=== PATIENT | female | born 1945 | race African-American/Black ===

== ENCOUNTER → 2017-02-12 | Outpatient (CLI) | payer OTHER ==
[~2017-02-12] MED LIST: AMBIEN 10 MG TA10 MG PO; CALCITRATE200 MG PO; MAGNESIUM400 MG PO; MELATONIN3 MG PO; NORCO 5-325 TA1 EACH PO; SYNTHROID75 MCG PO; TOPROL XL50 MG PO; VITAMIN D 5050000 I1 PO
== END ==
LOC: RAD 01:38
DX: Z12.31 Encounter for screening mammogram for malignant neoplasm of breast (principal)

== ENCOUNTER → 2017-03-08 | Outpatient (CLI) | payer OTHER | LOC: RAD 02-21 01:14 | DX: N63 Unspecified lump in breast (principal); R92.0 Mammographic microcalcification found on diagnostic imaging of breast ==

== ENCOUNTER → 2017-03-23 | Outpatient (CLI) | payer OTHER ==
--- NOTE | ~2017-03-23 | S ---
[facility] [place] [address] SURGICAL PATH RPT PROCEDURE Name: LORNA OLSON Room #: REG [facility].#: [id number] Admission: 03/23/17 Date of : 47 Discharge: Report #: [id number] Path Case #: [id number] PATHOLOGY REPORT COLLECTION DATE: 03/23/2017 RECEIVED DATE: 03/23/2017 SUBMITTING PHYS: Dr. Edin Leslie OTHER PHYS: Dr. Mj Hightower SPECIMEN(S) RECEIVED: A.Right lateral breast B.Left lateral breast-posterior * * * * * * * * * * * * FINAL DIAGNOSIS: A. Breast, right lateral breast, stereotactic needle core biopsy: - Coarse calcifications identified in association with hyalinized tissue in a background of focal adenosis as well as dilated ducts. - Negative for hyperplasia, atypia or malignancy. B. Breast, left lateral breast posterior, stereotactic needle core biopsy: - Coarse calcifications identified in association with hyalinized stroma, apocrine metaplasia, as well as focal adenosis. - Negative for hyperplasia, atypia or malignancy. 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 Co-review: Dr. Lesley Qiu. (IUV:keerthi; 03/26/2017) PATHOLOGIST: Juana Lyons M.D. REPORT ELECTRONICALLY SIGNED BY: Juana Lyons M.D. DATE/TIME: 03/27/2017 10:16 * * * * * * * * * * * * GROSS PATHOLOGY: A. Received in formalin labeled "Lorna Olson, right," and additionally labeled on the requisition as "lateral," are multiple needle cores of yellow-gonzalez fibrofatty tissue measuring 3.2 x 2.6 x 0.7 cm in aggregate dimensions. The tissue is submitted in its entirety in cassette A1 through A3. The cold ischemic time is 3 minutes. The total formalin fixation time is 13 hours 59 minutes. B. Received in formalin labeled "Anjel left," and additionally labeled on the requisition as "lateral posterior," are multiple [facility] [address] [place] [address] SURGICAL PATH RPT PROCEDURE Name: RHONDA OLSONCECIL Cummings [id number] Admission: 03/23/17 Date of : 47 Discharge: Report #: [id number] Path Case #: [id number] needle cores of yellow-gonzalez fibrofatty tissue measuring 3.7 x 8.6 x 0.5 cm in aggregate dimensions. The tissue is submitted in its entirety in cassette B1 through B5. The cold ischemic time is 5 minutes. The total formalin fixation time is 13 hours and 40 minutes. (TSD; 03/23/2017) CLINICAL HISTORY: Bilateral calcifications INITIAL CPT CODE(S): A; 60106 B; 34160 Professional services performed by [facility] at [facility] [address] [address], [place] [address] Technical services performed by [facility] at [address] [place] [address], [address], [place] [address]. [facility] [address] [place] [address] PHONE: [phone] DIRECTOR: Gaston Bermeo M.D. * * * END OF REPORT * * *
== END | disposition home or self-care (01) ==
LOC: RAD 08:11
DX: N60.81 Other benign mammary dysplasias of right breast (principal); N60.82 Other benign mammary dysplasias of left breast; Z79.899 Other long term (current) drug therapy

== ENCOUNTER → 2017-09-17 | Outpatient (CLI) | payer OTHER ==
[~2017-09-17] VITALS: Ht 154.9 cm; Wt 110.7 kg
[~2017-09-17] MED LIST changes: +ACETAMINOPHEN325 M1 PO; +ALBUTEROL2.5 MG/31 INH; +ALLEGRA ALLERG180 MG PO; +ASPIR 8181 MG PO; +ASPIR-TRIN325 MG PO; +ASPIRIN EC325 M1 PO; +ATORVASTATIN CA40 MG PO; +COZAAR 50 MG TA50 MG PO; +DEMADEX20 MG PO; +FUROSEMIDE20 MG/2 ML IV PUSH; +GLUCOPHAGE500 MG PO; +HYDROCODON-ACE1 EAC7 PO; +IRON325 PO; +KLOR-CON 1010 MEQ PO; +LASIX 20 MG TAB20 MG PO; +LASIX 40 MG TAB40 M2 PO; +LIPITOR40 MG PO; +LOPRESSOR25 PO; +LOSARTAN POTAS100 MG PO; +LOSARTAN POTASS25 MG PO; +METFORMIN HCL500 MG PO; +METOPROLOL SUCC50 MG PO; +MIRALAX17 GM PO; +NORVASC10 MG PO; +NOVOLIN N100 UNIT/1 SUBQ; +NOVOLOG MI100 UNIT/2 SUBQ; +NOVOLOG100 UNIT/1 SUBQ; +OMEPRAZOLE 20 M20 M1 PO; +OMEPRAZOLE40 MG PO; +PACERONE 200 M200 M1 PO; +PACERONE 200 M200 MG PO; +PIOGLITAZONE-M1 EAC1 PO; +PIOGLITAZONE15 MG; +POTASSIUM20 PO; +SENNA-TIME S T1 EACH PO; +SYNTHROID50 MCG PO; +TOPROL XL100 MG PO; +TRESIBA FL100 UNIT/1 SUBQ; +WELLBUTRIN XL150 MG PO; +ZOCOR20 MG PO
--- NOTE | ~2017-09-17 | CATHLAB ---
[facility] [place] [address] INVASIVE PROCEDURE REPORT Name: LORNA OLSON Room #: REG [facility]#: [id number] Admission: 09/17/17 Attend Phys: Agustin Sosa MD Discharge: Date of : 47 Date of Service: 09/17/17 1438 Report #: [id number] THIS REPORT FOR: //name// APPROVED REPORT Patient Details Patient Status: Out-Patient Room #: The patient is a 71 year-old female Event Personnel Agustin Sosa Webbing Supervisor, Jeanette Spence RN RN, Sri Wooten Sandifer, David Monitor, [facility] RN electrical logging engineer Performed Art Access - R radial artery Left Heart Cath w/or w/o Coronaries [id number] [facility] [address] Initial Mod Sed Same Phys/QHP Gr5y 056033 Hemostasis with Hemoband Indication Dyspnea, Positive stress test Risk Factors Hypercholesterolemia, Coronary Artery DiseaseHypertension, Diabetes Procedure Narrative The patient was brought electively to the Cardiac Catheterization Laboratory and was prepped and draped in a sterile manner. The Right Wrist^ was infiltrated with 1% Lidocaine subcutaneous anesthesia. A TRANSRADIAL SLENDER 6F GLIDESHEATH KIT #[id number] sheath was inserted into the Right Radial Artery^. Coronary angiography was performed using coronary diagnostic catheters. The right coronary system was accessed and visualized with a JR 4 catheter. The left coronary system was accessed and visualized with a JL 3.5 catheter. The left ventricle was accessed and visualized with a Pigtail catheter. Left ventricular/Aortic Valve gradient assessed via catheter pullback. Left ventriculogram was performed in HUNT projection. Closure device was deployed with a Fr VASC BAND L 27CM #[id number]. The patient tolerated the procedure well and there were no complications associated with the procedure. There was no hematoma. Intraoperative Conscious Sedation Sedation start time: 10:51 Case end Time: 11:10 Fentanyl 25 mcg Versed 1 mg [facility] [address] [place] [address] INVASIVE PROCEDURE REPORT Name: WHITNEYLORNA P Room #: REG [facility]#: [id number] Admission: 09/17/17 Attend Phys: Agustin Sosa MD Discharge: Date of : 47 Date of Service: 09/17/17 1438 Report #: [id number] Fluoro Time: 5.52 minutes Dose: 1064 mGy Contrast Type and Amount: Omnipaque 150 ml Coronary Angiography The patient's coronary anatomy is co- dominant. Diagnostic Cath Left Main large-caliber vessel, with mild to moderate calcification. In the distal segment, there is a 60-70% discrete napkin-ring type stenosis. LAD Moderate diffuse disease in the proximal segment with calcifications. The mid-segment does not have any flow-limiting lesions. The distal LAD tapers to a small size caliber vessel with a severe stenosis at the apical segment. Diagonal 1 Small-caliber vessel, no flow limiting lesions. Circumflex Codominant vessel, supplies 2 obtuse marginal arteries. OM1 Moderate size caliber vessel, supplies several branches as it travels down the lateral wall. There are no flow-limiting lesions in this vessel. OM2 Small-caliber vessel, with mild disease. Right Coronary Has mild disease in the mid segment. R PDA Patent vessel, with no flow-limiting lesions. Left Ventriculography The left ventricle is mildly dilated in size with normal contractility. The left ventricular ejection fraction is estimated to be 55-60%. Hemodynamics The aortic pressure is 160/73 mmHg with a mean of 110 mmHg. The left ventricular pressure is 220/2 mmHg with a mean of mmHg. The left ventricular end diastolic pressure is 21 mmHg. Conclusion 1. Severe stenosis in the distal left main artery. 2. Moderate disease in the proximal LAD, severe disease in the apical segment. 3. Codominant left circumflex system. [facility] [address] [place] [address] INVASIVE PROCEDURE REPORT Name: LORNA OLSON [id number] Admission: 09/17/17 Attend Phys: Agustin Sosa MD Discharge: Date of : 47 Date of Service: 09/17/17 1438 Report #: [id number] 4. Normal LV systolic function. 5. Recommend a surgical evaluation. <ELECTRONICALLY SIGNED> By: Agustin Sosa MD 09/17/17 1438 1438 1438 Agustin Sosa MD /INF
--- NOTE | ~2017-09-17 | EKG ---
[place] [address] [address] [place] [address] ELECTROCARDIOGRAM REPORT Name: LORNA OLSON Room #: REG [facility]#: [id number] Admission: 09/17/17 Attend Phys: Agustin Sosa MD Discharge: Date of : 47 Report #: [id number] THIS REPORT FOR: //name// [facility] Test Date: 2017-09-17 Test Time: 08:33:59 Pat Name: LORNA OLSON Department: Room: Gender: F Kitchen Help Handyman: Taco BAH : 1945 Requested By: Agustin Sosa Order Number: [id number] MD: Robin Otero Measurements Intervals Union Rate: 68 P: 45 AK: 152 QRS: 9 QRSD: 86 T: 33 QT: 407 QTc: 433 Interpretive Statements Sinus rhythm Poor R wave progression Compared to ECG 12/07/2000 16:09:28 Ventricular premature complex(es) no longer present Electronically Signed On 09-17-2017 8:49:53 GROUND CREW SUPERVISOR by Robin Otero [email or web address] <ELECTRONICALLY SIGNED> By: Robin Otero MD, [facility] 09/17/17 0849 0833 2 Robin Otero MD, FACC /EPI
[2017-09-17 09:17] VITALS: BP 154/76
[2017-09-17 09:19] LABS: HEMATOCRIT 37.5 % (37.0-47.0); HEMOGLOBIN 12.3 gm/dL (12.0-15.0); MCH 29.3 pg (26.0-34.0); MCHC 32.9 g/dL (28.0-37.0); MCV 89.3 fL (80.0-100.0); RBC 4.19 mil/uL (4.20-5.00); RDW 15.7 % (10.5-14.5); WBC 4.3 thou/uL (4.0-11.0)
[2017-09-17 09:33] LABS: CREATININE 1.1 mg/dL (0.6-1.0); POTASSIUM 3.5 mmol/L (3.5-5.1)
== END ==
LOC: CATH 08:10
PROVIDERS: Internal Medicine Cardiovascular Disease
DX: I25.10 Atherosclerotic heart disease of native coronary artery without angina pectoris (principal); E78.00 Pure hypercholesterolemia, unspecified; I10 Essential (primary) hypertension; E11.9 Type 2 diabetes mellitus without complications; I42.9 Cardiomyopathy, unspecified; Z82.49 Family history of ischemic heart disease and other diseases of the circulatory system; E78.5 Hyperlipidemia, unspecified; E66.9 Obesity, unspecified; Z87.891 Personal history of nicotine dependence

== ENCOUNTER → 2017-09-24 | Outpatient (CLI) | payer OTHER | LOC: ULTRA 09:07 | DX: Z01.818 Encounter for other preprocedural examination (principal) ==

== ENCOUNTER 2017-09-28 10:51 | Inpatient (IN) | payer OTHER ==
[2017-09-24 11:30] LABS: HEMATOCRIT 35.7 % (37.0-47.0); HEMOGLOBIN 11.8 gm/dL (12.0-15.0); MCH 29.7 pg (26.0-34.0); MCHC 33.1 g/dL (28.0-37.0); MCV 89.7 fL (80.0-100.0); PLATELET COUNT 262 thou/uL (150-400); RBC 3.98 mil/uL (4.20-5.00); WBC 3.7 thou/uL (4.0-11.0)
[2017-09-24 11:43] LABS: APTT 26.4 Seconds (24.5-32.8); PROTIME 9.7 Seconds (9.3-11.4)
[2017-09-24 11:44] LABS: ALBUMIN 3.6 g/dL (3.4-5.0); CALCIUM 9.3 mg/dL (8.5-10.1); CREATININE 1.1 mg/dL (0.6-1.0); POTASSIUM 3.9 mmol/L (3.5-5.1); TOTAL BILIRUBIN 0.5 mg/dL (<0.1-1.0); TOTAL PROTEIN 7.2 g/dL (6.4-8.2)
[2017-09-24 11:49] LABS: ABSOLUTE NEUTROPHILS 2.2 thou/uL (1.4-8.2)
[2017-09-24 11:55] LABS: URINE BILIRUBIN NEGATIVE (Negative); URINE BLOOD 1+ (Negative); URINE CLARITY CLEAR; URINE COLOR YELLOW; URINE GLUCOSE-RANDOM* 2+ (Negative); URINE KETONES NEGATIVE (Negative); URINE LEUKOCYTES-REFLEX TRACE (Negative); URINE NITRITE-REFLEX NEGATIVE (Negative); URINE PROTEIN (DIPSTICK) 1+ (Negative); URINE UROBILINOGEN 0.2 E.U./dl (0.2-1.0)
[2017-09-24 11:59] LABS: SQUAMOUS 0-3 Few /LPF (0-3); URINE WBC-REFLEX 0-5 Rare /HPF (0-5)
[2017-09-24 12:00] LABS: BACTERIA-REFLEX 1-9 Few /HPF (None Seen); CASTS None Seen /LPF (None Seen); CRYSTALS None Seen /LPF (None Seen); URINE RBC 0-2 Rare /HPF (0-2)
[2017-09-25 03:11] LABS: GLYCOHEMOGLOBIN (HGB A1C) 6.7 % (4.8-5.6)
[~2017-09-28] VITALS: Ht 157.5 cm; Wt 114.4 kg
--- NOTE | ~2017-09-28 | O ---
[facility] [place] [address] OPERATIVE REPORT Name: LORNA OLSON Emiliano Room #: 219-P [facility] IN ..#: [id number] Admission: 10/01/17 Attend Phys: Lamin Hooker MD Discharge: 10/08/17 Date of : 47 Report #: [id number] THIS REPORT FOR: //name// CC: Agustin Hightower DATE OF SERVICE: 10/01/2017 PREOPERATIVE DIAGNOSES: Coronary artery disease, left main disease, exertional dyspnea, abnormal stress test. POSTOPERATIVE DIAGNOSES: Coronary artery disease, left main disease, exertional dyspnea, abnormal stress test. OPERATIVE PROCEDURE PERFORMED: Coronary artery bypass grafting x 2 with left internal mammary artery to the LAD, saphenous vein graft to obtuse marginal vessel. SURGEON: Lamin Hooker MD CASTING OPERATOR HELPER: AIDEE Morris and AIDEE Briones ANESTHESIA: General. INDICATIONS: The patient is a very nice 71-year-old -[place] female who has presented with symptoms of significant dyspnea on exertion. She underwent a nuclear stress test which was abnormal to the anterior wall territory. She underwent subsequent left heart catheterization, which demonstrated important distal left main coronary artery disease. She had normal LV systolic function. She is admitted and brought to the operating room now for coronary bypass grafting. OPERATIVE SUMMARY: The patient was brought to the operating room and placed on the OR table in supine position. After anesthesia was induced via the general endotracheal route and monitoring lines have been positioned, the patient was prepped and draped in sterile fashion with chlorhexidine. It should be noted that we were unable to successfully place the [place]-Ray catheter. Ventricular tachycardia developed when trying to float the catheter. I first performed a median sternotomy incision. Left internal mammary artery was harvested in standard fashion. Concomitantly, saphenous vein was harvested from left lower extremity using multiple skip incisions. We did have significant difficulty identifying the saphenous vein graft at the level of the knee and the ankle and therefore went up to the thigh. After the internal mammary artery was harvested, I opened the pericardium, systemically [facility] [address] [place] [address] OPERATIVE REPORT Name: LORNA OLSON Room #: 219-P [facility] IN ..#: [id number] Admission: 10/01/17 Attend Phys: Lamin Hooker MD Discharge: 10/08/17 Date of : 47 Report #: [id number] anticoagulated the patient with heparin. Cannulae were placed in the ascending aorta and the right atrium. An antegrade cardioplegic cannula was positioned and after cardiopulmonary bypass had begun, under low flow conditions, the aorta was cross clamped and the heart was arrested. Approximately 1250 mL cold antegrade cardioplegia was augmented with topical ice slush. Diastolic arrest was achieved and maintained throughout this operation with intermittent doses of cold antegrade cardioplegia as well as cardioplegia given down grafts and topical ice slush. First opened up the obtuse marginal vessel, a large vessel, 1.9 mm in size. Distal anastomosis was carried out in end-to-side fashion with 7-0 Prolene. We gave cardioplegia and then opened up the LAD in the proximal aspect of its mid segment. This too was a good sized vessel, at least 1.9 mm in size. Distal anastomosis was carried out in end-to-side fashion with 7-0 Prolene utilizing the internal mammary artery. This was done with 7-0 Prolene. The pedicle was tacked to the epicardium with 6-0 Prolene. I then gave warm cardioplegia antegrade, took care to deair the ascending aorta and under low flow conditions, the aorta crossclamp was released after warm cardioplegia was given. We placed a side-biting clamp. The aortic root vent was removed. We constructed proximal anastomosis of saphenous vein graft to the ascending aorta and care was taken to deair the ascending aorta and the vein graft. The partial occluding clamp was removed and then flow was allowed down the saphenous vein graft. The patient was rewarmed to 37 degree centigrade. Atrial and ventricular pacing wires were placed. The patient was atrially paced at a rate of 80 and 3 successive doses of calcium and a single dose of magnesium were given over 3-5 minute intervals. After suitable period of reperfusion, the lungs were reinflated and the patient was weaned from cardiopulmonary bypass without inotropic support. We later added 2 mcg per kilo per minute of Dobutrex. Protamine was given to reverse the heparin, decannulation was effected. Once satisfactory hemostasis was achieved, we placed two 32-Welsh chest tubes in the anterior mediastinum and 24 Shaun drain in left pleural space. They were all brought out through separate stab incisions. The sternum was closed with #7 wire. The fascia, subcutaneous and skin were closed in multiple layers with absorbable suture. The procedure was completed. The patient was taken to the ICU in stable condition. Cardiopulmonary bypass time and crossclamp times are not available to me at the time of this dictation. <ELECTRONICALLY SIGNED> By: Lamin Hooker MD 10/17/17 1714 1322 1443 Lamin Hooker MD /nt
--- NOTE | ~2017-09-28 | EKG ---
[place] [address] [facility] [place] [address] ELECTROCARDIOGRAM REPORT Name: LORNA OLSON Room #: 236-P [facility] IN M.R.#: [id number] Admission: 10/01/17 Attend Phys: Lamin Hooker MD Discharge: Date of : 47 Report #: [id number] THIS REPORT FOR: //name// [facility] Test Date: 2017-10-02 Test Time: 06:18:40 Pat Name: LORNA OLSON Department: Room: 236 P Gender: F Office Technology Instructor: ANDRIY : 1945 Requested By: Robyn Fuentes Order Number: [id number] MD: Robin Otero Measurements Intervals [place] Rate: 82 P: 0 LA: 168 QRS: 20 QRSD: 80 T: 116 QT: 326 QTc: 381 Interpretive Statements Atrial-paced complexes Multiple ventricular premature complexes Low voltage, precordial leads Poor R wave progression Compared to ECG 09/17/2017 08:33:59 Ventricular premature complex(es) now present Premature ventricular complexes are now present atrial pacing is noted Electronically Signed On 10-02-2017 19:22:40 CDT by Robin Otero [email or web address] <ELECTRONICALLY SIGNED> By: Robin Otero MD, [facility] 10/02/17 1922 7 7 Robin Otero MD, [facility] /EPI
[~2017-09-28 10:51] MED LIST changes: -ACETAMINOPHEN325 M1 PO; -ALBUTEROL2.5 MG/31 INH; -ASPIR-TRIN325 MG PO; -ASPIRIN EC325 M1 PO; -ATORVASTATIN CA40 MG PO; -COZAAR 50 MG TA50 MG PO; -DEMADEX20 MG PO; -FUROSEMIDE20 MG/2 ML IV PUSH; -GLUCOPHAGE500 MG PO; -HYDROCODON-ACE1 EAC7 PO; -KLOR-CON 1010 MEQ PO; -LASIX 40 MG TAB40 M2 PO; -LIPITOR40 MG PO; -LOPRESSOR25 PO; -LOSARTAN POTAS100 MG PO; -METOPROLOL SUCC50 MG PO; -MIRALAX17 GM PO; -NOVOLOG MI100 UNIT/2 SUBQ; -OMEPRAZOLE 20 M20 M1 PO; -PACERONE 200 M200 M1 PO; -PACERONE 200 M200 MG PO; -POTASSIUM20 PO; -SENNA-TIME S T1 EACH PO; -TRESIBA FL100 UNIT/1 SUBQ; -WELLBUTRIN XL150 MG PO
[2017-10-01] VITALS (15 sets, daily range): BP systolic 108–155; BP diastolic 43–86
[2017-10-01 12:12] LABS: HEMATOCRIT 24.5 % (37.0-47.0); MCH 29.6 pg (26.0-34.0); MCHC 33.3 g/dL (28.0-37.0); RBC 2.76 mil/uL (4.20-5.00); RDW 14.9 % (10.5-14.5); WBC 8.9 thou/uL (4.0-11.0)
[2017-10-01 12:15] LABS: HEMOGLOBIN 8.2 gm/dL (12.0-15.0)
[2017-10-01 12:26] LABS: APTT 23.4 Seconds (24.5-32.8); FIBRINOGEN 170.9 mg/dL (210-360); PROTIME 11.8 Seconds (9.3-11.4)
[2017-10-01 12:28] LABS: INR 1.2
[2017-10-01 13:19] LABS: HEMATOCRIT 28.1 % (37.0-47.0); HEMOGLOBIN 9.3 gm/dL (12.0-15.0); MCH 29.7 pg (26.0-34.0); MCHC 33.2 g/dL (28.0-37.0); MCV 89.5 fL (80.0-100.0); RBC 3.14 mil/uL (4.20-5.00); WBC 11.6 thou/uL (4.0-11.0)
[2017-10-01 13:29] LABS: CALCIUM 10.9 mg/dL (8.5-10.1); CREATININE 0.9 mg/dL (0.6-1.0); POTASSIUM 3.4 mmol/L (3.5-5.1)
[2017-10-01 13:30] LABS: MAGNESIUM 2.4 mg/dL (1.8-2.4)
[2017-10-01 13:32] LABS: INR 1.1; PROTIME 11.6 Seconds (9.3-11.4)
[2017-10-01 13:40] LABS: BE(vivo) -4.3 mmol/L (-2 to +3); PCO2 39.7 mmHg (35.0-45.0); PO2 330.4 mmHg (80.0-100.0); pH 7.342 (7.360-7.450); sO2 99.7 % (92.0-98.0)
[2017-10-01 16:59] LABS: BE(vivo) -5.8 mmol/L (-2 to +3); HCO3 19.2 mmol/L (22.0-26.0); PCO2 35.8 mmHg (35.0-45.0); PO2 129.1 mmHg (80.0-100.0); pH 7.347 (7.360-7.450); sO2 98.5 % (92.0-98.0)
[2017-10-01 17:36] LABS: HEMATOCRIT 28.6 % (37.0-47.0); HEMOGLOBIN 9.3 gm/dL (12.0-15.0)
[2017-10-01 17:36] LABS: BE(vivo) -7.1 mmol/L (-2 to +3); HCO3 18.8 mmol/L (22.0-26.0); PO2 116.4 mmHg (80.0-100.0); sO2 97.9 % (92.0-98.0)
[2017-10-01 17:42] LABS: CALCIUM 10.3 mg/dL (8.5-10.1); CREATININE 1.1 mg/dL (0.6-1.0); POTASSIUM 3.9 mmol/L (3.5-5.1)
[2017-10-01 20:14] LABS: BE(vivo) -6.9 mmol/L (-2 to +3); HCO3 18.9 mmol/L (22.0-26.0); PCO2 39.2 mmHg (35.0-45.0); PO2 116.4 mmHg (80.0-100.0); sO2 97.9 % (92.0-98.0)
[2017-10-01 20:15] LABS: pH 7.301 (7.360-7.450)
[2017-10-01 23:37] LABS: BE(vivo) -3.8 mmol/L (-2 to +3); HCO3 21.3 mmol/L (22.0-26.0); PCO2 38.5 mmHg (35.0-45.0); PO2 85.7 mmHg (80.0-100.0); pH 7.361 (7.360-7.450); sO2 96.2 % (92.0-98.0)
[2017-10-02] VITALS (43 sets, daily range): BP systolic 108–140; BP diastolic 40–99
[2017-10-02 04:52] LABS: CALCIUM 9.5 mg/dL (8.5-10.1); CREATININE 1.2 mg/dL (0.6-1.0); POTASSIUM 3.5 mmol/L (3.5-5.1)
[2017-10-02 05:20] LABS: HEMATOCRIT 24.5 % (37.0-47.0); MCH 29.1 pg (26.0-34.0); MCHC 32.7 g/dL (28.0-37.0); MCV 88.8 fL (80.0-100.0); RBC 2.76 mil/uL (4.20-5.00); RDW 15.1 % (10.5-14.5); WBC 11.7 thou/uL (4.0-11.0)
[2017-10-02 06:21] LABS: BE(vivo) -1.4 mmol/L (-2 to +3); HCO3 23.8 mmol/L (22.0-26.0); PCO2 41.9 mmHg (35.0-45.0); PO2 65.3 mmHg (80.0-100.0); pH 7.372 (7.360-7.450); sO2 92.3 % (92.0-98.0)
[2017-10-03] VITALS (21 sets, daily range): BP systolic 102–147; BP diastolic 43–67
[2017-10-03 07:40] LABS: HEMOGLOBIN 7.7 gm/dL (12.0-15.0); MCH 29.8 pg (26.0-34.0); MCHC 33.5 g/dL (28.0-37.0); MCV 88.9 fL (80.0-100.0); RBC 2.59 mil/uL (4.20-5.00); RDW 15.3 % (10.5-14.5); WBC 13.4 thou/uL (4.0-11.0)
[2017-10-03 07:51] LABS: CALCIUM 8.8 mg/dL (8.5-10.1); CREATININE 1.3 mg/dL (0.6-1.0); POTASSIUM 4.2 mmol/L (3.5-5.1)
[2017-10-04 04:05] VITALS: BP 152/69
[2017-10-04 04:13] LABS: CALCIUM 8.9 mg/dL (8.5-10.1); CREATININE 1.5 mg/dL (0.6-1.0); POTASSIUM 4.3 mmol/L (3.5-5.1)
[2017-10-04 04:44] LABS: HEMATOCRIT 23.3 % (37.0-47.0); HEMOGLOBIN 7.8 gm/dL (12.0-15.0); MCH 29.9 pg (26.0-34.0); MCHC 33.3 g/dL (28.0-37.0); MCV 89.7 fL (80.0-100.0); RBC 2.59 mil/uL (4.20-5.00); RDW 15.4 % (10.5-14.5); WBC 9.2 thou/uL (4.0-11.0)
[2017-10-04 08:28] VITALS: BP 141/50
[2017-10-04 09:03] LABS: POC BE 0 mmol/L (-2.0 to +3.0); POC CA IONIZED 4.3 mg/dL (4.5-5.3); POC GLUCOSE 172 mg/dL (70-99); POC HCO3 24.1 mmol/L (22.0-26.0); POC HEMOGLOBIN 8.8 g/dL (12.0-15.0); POC POTASSIUM 3.7 mmol/L (3.5-5.1); POC SODIUM 141 mmol/L (136-145); POC pCO2 35.8 mmHg (35.0-45.0); POC pH 7.436 (7.360-7.450)
[2017-10-04 09:03] LABS: POC BE 2 mmol/L (-2.0 to +3.0); POC CA IONIZED 4.6 mg/dL (4.5-5.3); POC GLUCOSE 166 mg/dL (70-99); POC HEMOGLOBIN 10.2 g/dL (12.0-15.0); POC POTASSIUM 3.4 mmol/L (3.5-5.1); POC SODIUM 142 mmol/L (136-145); POC pCO2 32.8 mmHg (35.0-45.0); POC pH 7.489 (7.360-7.450)
[2017-10-04 09:03] LABS: POC BE 1 mmol/L (-2.0 to +3.0); POC CA IONIZED 4.7 mg/dL (4.5-5.3); POC GLUCOSE 133 mg/dL (70-99); POC HCO3 24.9 mmol/L (22.0-26.0); POC HEMOGLOBIN 10.5 g/dL (12.0-15.0); POC POTASSIUM 3.5 mmol/L (3.5-5.1); POC SODIUM 141 mmol/L (136-145); POC pCO2 35.1 mmHg (35.0-45.0); POC pH 7.459 (7.360-7.450)
[2017-10-04 09:03] LABS: POC BE 1 mmol/L (-2.0 to +3.0); POC CA IONIZED 7.4 mg/dL (4.5-5.3); POC GLUCOSE 174 mg/dL (70-99); POC HCO3 25.8 mmol/L (22.0-26.0); POC HEMOGLOBIN 8.2 g/dL (12.0-15.0); POC POTASSIUM 3.8 mmol/L (3.5-5.1); POC SODIUM 141 mmol/L (136-145); POC pH 7.396 (7.360-7.450)
[2017-10-04 09:03] LABS: POC BE 2 mmol/L (-2.0 to +3.0); POC GLUCOSE 166 mg/dL (70-99); POC HEMOGLOBIN 8.5 g/dL (12.0-15.0); POC SODIUM 142 mmol/L (136-145); POC pCO2 31.4 mmHg (35.0-45.0)
[2017-10-04 09:04] LABS: POC BE 0 mmol/L (-2.0 to +3.0); POC CA IONIZED 7.3 mg/dL (4.5-5.3); POC GLUCOSE 164 mg/dL (70-99); POC HCO3 23.9 mmol/L (22.0-26.0); POC HEMOGLOBIN 7.8 g/dL (12.0-15.0); POC POTASSIUM 3.6 mmol/L (3.5-5.1); POC SODIUM 141 mmol/L (136-145); POC pCO2 35.1 mmHg (35.0-45.0); POC pH 7.441 (7.360-7.450)
[2017-10-04 09:04] LABS: POC BE 0 mmol/L (-2.0 to +3.0); POC CA IONIZED 6.5 mg/dL (4.5-5.3); POC GLUCOSE 143 mg/dL (70-99); POC HCO3 23.2 mmol/L (22.0-26.0); POC HEMOGLOBIN 8.8 g/dL (12.0-15.0); POC POTASSIUM 3.3 mmol/L (3.5-5.1); POC SODIUM 142 mmol/L (136-145); POC pCO2 31.8 mmHg (35.0-45.0); POC pH 7.472 (7.360-7.450)
[2017-10-04 11:28] LABS: POC CA IONIZED 7.3 mg/dL (4.5-5.3); POC GLUCOSE 164 mg/dL (70-99); POC HEMOGLOBIN 8.2 g/dL (12.0-15.0); POC POTASSIUM 3.6 mmol/L (3.5-5.1); POC SODIUM 141 mmol/L (136-145)
[2017-10-04 11:36] VITALS: BP 124/56
[2017-10-04 20:13] VITALS: BP 138/46
[2017-10-05 04:40] LABS: CALCIUM 8.8 mg/dL (8.5-10.1); CREATININE 1.2 mg/dL (0.6-1.0); POTASSIUM 3.6 mmol/L (3.5-5.1)
[2017-10-05 04:48] VITALS: BP 127/52
[2017-10-05 07:25] VITALS: BP 122/57
[2017-10-05 11:05] VITALS: BP 106/43
[2017-10-05 15:23] VITALS: BP 157/59
[2017-10-05] MEDS ORDERED: HYDROCODON-ACE1 EAC7 PO (15:30)
[2017-10-05] MEDS ORDERED: POTASSIUM20 PO (15:34)
[2017-10-05] MEDS ORDERED: NOVOLOG MI100 UNIT/2 SUBQ (15:34)
[2017-10-05] MEDS ORDERED: ALBUTEROL2.5 MG/31 INH (15:34)
[2017-10-05] MEDS ORDERED: NOVOLOG100 UNIT/1 SUBQ (15:34)
[2017-10-05] MEDS ORDERED: MIRALAX17 GM PO (15:34)
[2017-10-05] MEDS ORDERED: ACETAMINOPHEN325 M1 PO (15:34)
[2017-10-05] MEDS ORDERED: PACERONE 200 M200 MG PO (15:34)
[2017-10-05] MEDS ORDERED: LOPRESSOR25 PO (15:34)
[2017-10-05] MEDS ORDERED: IRON325 PO (15:34)
[2017-10-05] MEDS ORDERED: SENNA-TIME S T1 EACH PO (15:34)
[2017-10-05] MEDS ORDERED: FUROSEMIDE20 MG/2 ML IV PUSH (15:34)
[2017-10-05] MEDS ORDERED: ASPIRIN EC325 M1 PO (15:34)
[2017-10-06 04:53] VITALS: BP 145/74
[2017-10-06 07:58] VITALS: BP 149/72
[2017-10-06 09:59] LABS: CALCIUM 8.9 mg/dL (8.5-10.1); CREATININE 1.1 mg/dL (0.6-1.0); MAGNESIUM 2.3 mg/dL (1.8-2.4)
[2017-10-06 11:35] VITALS: BP 141/60
[2017-10-06 16:30] VITALS: BP 160/61
[2017-10-06 20:16] VITALS: BP 137/95
[2017-10-07 05:33] VITALS: BP 154/71
[2017-10-07 06:27] LABS: POTASSIUM 3.9 mmol/L (3.5-5.1)
[2017-10-07 07:45] VITALS: BP 134/57
[2017-10-07 12:00] VITALS: BP 129/74
[2017-10-07 15:35] VITALS: BP 157/74
[2017-10-07 20:29] VITALS: BP 154/67
[2017-10-08 04:46] VITALS: BP 157/77
[2017-10-08 08:00] VITALS: BP 144/63
[2017-10-08] MEDS ORDERED: GLUCOPHAGE500 MG PO (09:19)
[2017-10-08] MEDS ORDERED: COZAAR 50 MG TA50 MG PO (11:25)
[2017-10-08] MEDS ORDERED: PACERONE 200 M200 M1 PO (11:25)
[2017-10-08] MEDS ORDERED: LIPITOR40 MG PO (11:25)
[2017-10-08 12:00] VITALS: BP 143/57
[2017-10-22] MEDS ORDERED: LASIX 40 MG TAB40 M2 PO (12:25)
[2017-10-22] MEDS ORDERED: LASIX 20 MG TAB20 MG PO (12:25)
[2017-10-22] MEDS ORDERED: POTASSIUM20 PO (12:25)
[2017-10-22] MEDS ORDERED: KLOR-CON 1010 MEQ PO (12:25)
[2017-10-22] MEDS ORDERED: LOPRESSOR25 PO (12:25)
[2018-04-08] MEDS ORDERED: ASPIR-TRIN325 MG PO (09:06)
[2018-04-08] MEDS ORDERED: METOPROLOL SUCC50 MG PO (09:07)
[2018-04-08] MEDS ORDERED: LOSARTAN POTAS100 MG PO (09:08)
[2018-04-08] MEDS ORDERED: DEMADEX20 MG PO (09:08)
[2018-04-08] MEDS ORDERED: WELLBUTRIN XL150 MG PO (09:09)
[2018-04-08] MEDS ORDERED: ATORVASTATIN CA40 MG PO (09:10)
[2018-04-08] MEDS ORDERED: IRON325 PO (09:11)
[2018-04-08] MEDS ORDERED: OMEPRAZOLE 20 M20 M1 PO (09:11)
[2018-04-08] MEDS ORDERED: ALLEGRA ALLERG180 MG PO (09:12)
[2018-04-08] MEDS ORDERED: TRESIBA FL100 UNIT/1 SUBQ (09:12)
[2018-04-08] MEDS ORDERED: POTASSIUM20 PO (09:14)
== END 2017-10-08 14:04 | DRG 235 ==
LOC: PRE 10:51 → ICU 10-01 05:29 → TBA 10-01 05:29 → PRE 10-01 05:37 → ICU 10-01 13:22 → PRE 10-03 08:14 → 2N 10-03 17:44
PROVIDERS: Internal Medicine Cardiovascular Disease; Nurse Practitioner; Thoracic Surgery (Cardiothoracic Vascular Surgery)
PROC: 021009W Bypass Coronary Artery, One Artery from Aorta with Autologous Venous Tissue, Open Approach (ICD-10-PCS; principal; 2017-10-01)
PROC: 05HM33Z Insertion of Infusion Device into Right Internal Jugular Vein, Percutaneous Approach (ICD-10-PCS; principal; 2017-10-01)
PROC: 03HY32Z Insertion of Monitoring Device into Upper Artery, Percutaneous Approach (ICD-10-PCS; principal; 2017-10-01)
PROC: 02100Z9 Bypass Coronary Artery, One Artery from Left Internal Mammary, Open Approach (ICD-10-PCS; principal; 2017-10-01)
PROC: 5A1221Z Performance of Cardiac Output, Continuous (ICD-10-PCS; principal; 2017-10-01)
PROC: 4A133J1 Monitoring of Arterial Pulse, Peripheral, Percutaneous Approach (ICD-10-PCS; principal; 2017-10-01)
PROC: 06BQ4ZZ Excision of Left Saphenous Vein, Percutaneous Endoscopic Approach (ICD-10-PCS; principal; 2017-10-01)
PROC: 4A133B1 Monitoring of Arterial Pressure, Peripheral, Percutaneous Approach (ICD-10-PCS; principal; 2017-10-01)
DX: I25.10 Atherosclerotic heart disease of native coronary artery without angina pectoris (principal); N17.1 Acute kidney failure with acute cortical necrosis; D62 Acute posthemorrhagic anemia; E87.0 Hyperosmolality and hypernatremia; Z68.42 Body mass index [BMI] 45.0-49.9, adult; E78.5 Hyperlipidemia, unspecified; E87.6 Hypokalemia; I49.3 Ventricular premature depolarization; G47.33 Obstructive sleep apnea (adult) (pediatric); E03.9 Hypothyroidism, unspecified; E11.65 Type 2 diabetes mellitus with hyperglycemia; E78.00 Pure hypercholesterolemia, unspecified; I42.8 Other cardiomyopathies; E66.01 Morbid (severe) obesity due to excess calories; E11.22 Type 2 diabetes mellitus with diabetic chronic kidney disease; I12.9 Hypertensive chronic kidney disease with stage 1 through stage 4 chronic kidney disease, or unspecified chronic kidney disease; Z82.49 Family history of ischemic heart disease and other diseases of the circulatory system; R09.89 Other specified symptoms and signs involving the circulatory and respiratory systems; E11.39 Type 2 diabetes mellitus with other diabetic ophthalmic complication; K59.00 Constipation, unspecified; Z60.2 Problems related to living alone; N18.2 Chronic kidney disease, stage 2 (mild); Z98.49 Cataract extraction status, unspecified eye; Z79.82 Long term (current) use of aspirin; Z79.899 Other long term (current) drug therapy; Z88.8 Allergy status to other drugs, medicaments and biological substances
CPT/HCPCS: 10078; 10081; 47000; 47001; 47002; 47297; 48888; 50010; 50249; 50409; 50456; 50497; 50662; 50668; 51301; 51412; 52131; 52314; 53327; 53358; 55415; 56524; 56525; 56526; 56527; 56528; 56529; 56531; 56534; 56639; 57093; 62110; 62950; 64029; 65002; 65003; 65020; 65043; 65090; 65120; 83006

== ENCOUNTER → 2017-11-05 | Outpatient (CLI) | payer OTHER ==
[~2017-11-05] MED LIST changes: +ACETAMINOPHEN325 M1 PO; +ALBUTEROL2.5 MG/31 INH; +ASPIRIN EC325 M1 PO; +COZAAR 50 MG TA50 MG PO; +FUROSEMIDE20 MG/2 ML IV PUSH; +GLUCOPHAGE500 MG PO; +HYDROCODON-ACE1 EAC7 PO; +KLOR-CON 1010 MEQ PO; +LASIX 40 MG TAB40 M2 PO; +LIPITOR40 MG PO; +LOPRESSOR25 PO; +MIRALAX17 GM PO; +NOVOLOG MI100 UNIT/2 SUBQ; +PACERONE 200 M200 M1 PO; +PACERONE 200 M200 MG PO; +POTASSIUM20 PO; +SENNA-TIME S T1 EACH PO
== END ==
LOC: RAD 06:17
DX: I51.7 Cardiomegaly (principal); I10 Essential (primary) hypertension; Z95.1 Presence of aortocoronary bypass graft

== ENCOUNTER → 2017-11-14 | Outpatient (CLI) | payer OTHER | LOC: HYPER 06:41 | DX: T81.31XD Disruption of external operation (surgical) wound, not elsewhere classified, subsequent encounter (principal); L24.4 Irritant contact dermatitis due to drugs in contact with skin; D64.9 Anemia, unspecified; E44.0 Moderate protein-calorie malnutrition; R26.9 Unspecified abnormalities of gait and mobility; E11.22 Type 2 diabetes mellitus with diabetic chronic kidney disease; I12.9 Hypertensive chronic kidney disease with stage 1 through stage 4 chronic kidney disease, or unspecified chronic kidney disease; N18.2 Chronic kidney disease, stage 2 (mild); I25.10 Atherosclerotic heart disease of native coronary artery without angina pectoris; E03.9 Hypothyroidism, unspecified; E78.00 Pure hypercholesterolemia, unspecified; E78.5 Hyperlipidemia, unspecified; E11.319 Type 2 diabetes mellitus with unspecified diabetic retinopathy without macular edema; E66.01 Morbid (severe) obesity due to excess calories; Z68.41 Body mass index [BMI] 40.0-44.9, adult; Z79.4 Long term (current) use of insulin; Z95.1 Presence of aortocoronary bypass graft; Z90.710 Acquired absence of both cervix and uterus; Z87.891 Personal history of nicotine dependence; Y83.8 Other surgical procedures as the cause of abnormal reaction of the patient, or of later complication, without mention of misadventure at the time of the procedure ==

== ENCOUNTER → 2017-11-28 | Outpatient (CLI) | payer OTHER | LOC: HYPER 06:39 | DX: T81.31XD Disruption of external operation (surgical) wound, not elsewhere classified, subsequent encounter (principal); L24.4 Irritant contact dermatitis due to drugs in contact with skin; D64.9 Anemia, unspecified; E44.0 Moderate protein-calorie malnutrition; R26.9 Unspecified abnormalities of gait and mobility; E11.22 Type 2 diabetes mellitus with diabetic chronic kidney disease; I12.9 Hypertensive chronic kidney disease with stage 1 through stage 4 chronic kidney disease, or unspecified chronic kidney disease; N18.2 Chronic kidney disease, stage 2 (mild); I25.10 Atherosclerotic heart disease of native coronary artery without angina pectoris; E03.9 Hypothyroidism, unspecified; E78.00 Pure hypercholesterolemia, unspecified; E78.5 Hyperlipidemia, unspecified; E11.319 Type 2 diabetes mellitus with unspecified diabetic retinopathy without macular edema; E66.01 Morbid (severe) obesity due to excess calories; Z68.41 Body mass index [BMI] 40.0-44.9, adult; Z95.1 Presence of aortocoronary bypass graft; Z79.4 Long term (current) use of insulin; Z87.891 Personal history of nicotine dependence; Y83.8 Other surgical procedures as the cause of abnormal reaction of the patient, or of later complication, without mention of misadventure at the time of the procedure ==

== ENCOUNTER → 2017-12-13 | Outpatient (CLI) | payer OTHER | LOC: HYPER 06:44 | DX: T81.31XD Disruption of external operation (surgical) wound, not elsewhere classified, subsequent encounter (principal); E11.319 Type 2 diabetes mellitus with unspecified diabetic retinopathy without macular edema; E11.22 Type 2 diabetes mellitus with diabetic chronic kidney disease; I12.9 Hypertensive chronic kidney disease with stage 1 through stage 4 chronic kidney disease, or unspecified chronic kidney disease; N18.2 Chronic kidney disease, stage 2 (mild); I25.10 Atherosclerotic heart disease of native coronary artery without angina pectoris; E03.9 Hypothyroidism, unspecified; E78.00 Pure hypercholesterolemia, unspecified; E78.5 Hyperlipidemia, unspecified; E66.01 Morbid (severe) obesity due to excess calories; D64.9 Anemia, unspecified; E44.0 Moderate protein-calorie malnutrition; L24.4 Irritant contact dermatitis due to drugs in contact with skin; G47.33 Obstructive sleep apnea (adult) (pediatric); Z95.1 Presence of aortocoronary bypass graft; Z90.710 Acquired absence of both cervix and uterus; Z98.49 Cataract extraction status, unspecified eye; Z87.891 Personal history of nicotine dependence; Z79.4 Long term (current) use of insulin; Z68.41 Body mass index [BMI] 40.0-44.9, adult; Y83.8 Other surgical procedures as the cause of abnormal reaction of the patient, or of later complication, without mention of misadventure at the time of the procedure ==

== ENCOUNTER → 2017-12-17 | Outpatient (CLI) | payer OTHER ==
--- NOTE | ~2017-12-17 | 2DMMODE ---
[facility] [address] [place] [address] 2 D/M-MODE ECHOCARDIOGRAM Name: LORNA OLSON Room #: REG [facility] [id number] Admission: 12/17/17 Attend Phys: Agustin Sosa MD Discharge: Date of : 47 Date of Service: 12/17/17 1550 Report #: [id number] THIS REPORT FOR: //name// APPROVED REPORT Study performed: 12/17/2017 14:48:23 EXAM: Comprehensive 2D, Doppler, and color-flow Echocardiogram Patient Location: Out-Patient Room #: Echo lab 2 Status: routine BSA: 2.04 HR: 64 bpm BP: 156/94 mmHg Other Information Study Quality: Adequate Indications CAD Hypertension/HDD 2D Dimensions RVDd: 39.33 mm LVEF(%): 59.62 (>50%) IVSd: 8.84 (7-11mm) LVOT Diam: 19.56 (18-24mm) LVDd: 49.03 mm PWd: 9.07 (7-11mm) Ascending Ao: 26.58 (22-36mm) LVDs: 33.45 (25-40mm) Aortic Root: 28.76 mm IVC: 24.00 mm Corral's LVEF: 59.62 % Volumes Left Atrial Volume (Systole) Single Plane 4CH: 63.37 mL Single Plane 2CH: 68.72 mL LA ESV Index: 36.00 mL/m2 Aortic Valve AoV Peak Laurent.: 1.37 m/s AO Peak Gr.: 7.56 mmHg LVOT Max P.94 mmHg LVOT Max V: 0.86 m/s MARILEE Vmax: 1.87 cm2 Mitral Valve E/A Ratio: 1.6 MV Decel. Time: 166.98 ms [facility] [place] [address] 2 D/M-MODE ECHOCARDIOGRAM Name: LORNA OLSON Room #: [facility]#: [id number] Admission: 12/17/17 Attend Phys: Agustin Sosa MD Discharge: Date of : 47 Date of Service: 12/17/17 1550 Report #: [id number] MV E Max Laurent.: 1.13 m/s MV A Laurent.: 0.71 m/s MV PHT: 48.42 ms IVRT: 46.14 ms Pulmonary Valve PV Peak Laurent.: 0.86 m/s PV Peak Gr.: 2.94 mmHg Pulmonary Vein P Vein S: 0.45 m/s P Vein A: 0.11 m/s P Vein D: 0.57 m/s P Vein A Dur.: 101.5 msec P Vein S/D Ratio: 0.79 Tricuspid Valve TR Peak Laurent.: 3.34 m/s TR Peak Gr.: 44.64 mmHg PA Pressure: 60.00 mmHg Left Ventricle The left ventricle is normal size. There is normal left ventricular wall thickness. The left ventricular systolic function is normal. The left ventricular ejection fraction is within the normal range. LVEF is 55-60%. Grade II - pseudonormal filling dynamics. Right Ventricle Right ventricle is at the upper limits of normal. The right ventricular systolic function is normal. Atria Left atrium is mildly dilated. Right atrium is mildly dilated. Aortic Valve The aortic valve is normal in structure. No aortic regurgitation is present. There is no aortic valvular stenosis. Mitral Valve The mitral valve is normal in structure. Mild mitral regurgitation. No evidence of mitral valve stenosis. Tricuspid Valve There is mild tricuspid regurgitation. There is moderate pulmonary hypertension. Pulmonic Valve The pulmonary valve is normal in structure. Trace pulmonic [address] [address] 2 D/M-MODE ECHOCARDIOGRAM Name: OLSONLORNA Room #: REG CL [facility]#: [id number] Admission: 12/17/17 Attend Phys: Agustin Sosa MD Discharge: Date of : 47 Date of Service: 12/17/17 1550 Report #: [id number] regurgitation. Great Vessels The aortic root is normal in size. The inferior vena cava is dilated with no inspiratory collapse. Pericardium There is no pericardial effusion. <Conclusion> The left ventricle is normal size. There is normal left ventricular wall thickness. The left ventricular systolic function is normal. Grade II - pseudonormal filling dynamics. Right ventricle is at the upper limits of normal. Left atrium is mildly dilated. Right atrium is mildly dilated. The aortic valve is normal in structure. Mild mitral regurgitation. There is mild tricuspid regurgitation. <ELECTRONICALLY SIGNED> By: Agustin Sosa MD 12/17/17 1550 1550 1550 Agustin Sosa MD /INF
== END ==
LOC: CV 14:10
DX: I08.1 Rheumatic disorders of both mitral and tricuspid valves (principal); I25.10 Atherosclerotic heart disease of native coronary artery without angina pectoris; I10 Essential (primary) hypertension

== ENCOUNTER → 2017-12-26 | Outpatient (CLI) | payer OTHER | LOC: HYPER 07:03 | DX: T81.31XD Disruption of external operation (surgical) wound, not elsewhere classified, subsequent encounter (principal); E66.01 Morbid (severe) obesity due to excess calories; E11.22 Type 2 diabetes mellitus with diabetic chronic kidney disease; I12.9 Hypertensive chronic kidney disease with stage 1 through stage 4 chronic kidney disease, or unspecified chronic kidney disease; N18.2 Chronic kidney disease, stage 2 (mild); E11.319 Type 2 diabetes mellitus with unspecified diabetic retinopathy without macular edema; I25.10 Atherosclerotic heart disease of native coronary artery without angina pectoris; E03.9 Hypothyroidism, unspecified; E78.00 Pure hypercholesterolemia, unspecified; E78.5 Hyperlipidemia, unspecified; D64.9 Anemia, unspecified; L24.4 Irritant contact dermatitis due to drugs in contact with skin; E44.0 Moderate protein-calorie malnutrition; G47.33 Obstructive sleep apnea (adult) (pediatric); Z98.49 Cataract extraction status, unspecified eye; Z79.4 Long term (current) use of insulin; Z68.41 Body mass index [BMI] 40.0-44.9, adult; Z95.0 Presence of cardiac pacemaker; Z90.710 Acquired absence of both cervix and uterus; Z87.891 Personal history of nicotine dependence; Y83.8 Other surgical procedures as the cause of abnormal reaction of the patient, or of later complication, without mention of misadventure at the time of the procedure ==

== ENCOUNTER → 2018-02-04 | Outpatient (CLI) | payer OTHER | LOC: RAD 13:00 | DX: J98.11 Atelectasis (principal); I12.9 Hypertensive chronic kidney disease with stage 1 through stage 4 chronic kidney disease, or unspecified chronic kidney disease; E11.22 Type 2 diabetes mellitus with diabetic chronic kidney disease; N18.2 Chronic kidney disease, stage 2 (mild); E78.5 Hyperlipidemia, unspecified; G47.33 Obstructive sleep apnea (adult) (pediatric); Z95.1 Presence of aortocoronary bypass graft; Z88.5 Allergy status to narcotic agent ==

== ENCOUNTER → 2018-04-10 | Outpatient (CLI) | payer OTHER ==
[~2018-04-10] VITALS: Ht 157.5 cm; Wt 99.8 kg
[~2018-04-10] MED LIST changes: +ASPIR-TRIN325 MG PO; +ATORVASTATIN CA40 MG PO; +DEMADEX20 MG PO; +LOSARTAN POTAS100 MG PO; +METOPROLOL SUCC50 MG PO; +OMEPRAZOLE 20 M20 M1 PO; +TRESIBA FL100 UNIT/1 SUBQ; +WELLBUTRIN XL150 MG PO
--- NOTE | ~2018-04-10 | P ---
[facility] [place] [address] PROCEDURE REPORT Name: LORNA OLSON Emiliano Room #: REG [facility]#: [id number] Admission: 04/10/18 Attend Phys: Jeb Mercado Discharge: Date of : 47 Report #: [id number] THIS REPORT FOR: //name// CC: Jeb Hightower MD DATE OF SERVICE: 04/10/2018 PROCEDURE PERFORMED: Upper endoscopy with esophageal dilation and biopsies. HISTORY OF PRESENT ILLNESS: The patient is a 72-year-old female, reports intermittent dysphagia over the last few months. She takes omeprazole for heartburn, which controls her symptoms quite well. Plan is for upper endoscopy. DESCRIPTION OF PROCEDURE: The risks and benefits of the procedure were explained to the patient, those risks including but not limited to bleeding, perforation, the risk of sedation. She understood these risks and gave informed consent. Sedation was given using propofol per anesthesia. Next, using a standard Olympus upper endoscope, the scope was placed in the patient's mouth and advanced under direct vision through the esophagus, stomach and into the second portion of the duodenum. The larynx was normal in appearance. The esophagus was normal throughout. The GE junction was normal. No evidence of stricture or esophagitis. There was a mild diffuse gastritis noted in the gastric body. No evidence of ulcerations or erosions. Biopsies were obtained to rule out H. pylori. The pylorus was normal and patent. The duodenal bulb, first and second portion were all normal. The scope was then brought back up into the patient's stomach and a Savary guidewire was inserted through the scope, leaving the guidewire in place as the scope was then withdrawn. Next, a 48-Syriac Savary dilation of the esophagus was performed without difficulty. The wire and dilator removed. The scope was reintroduced into the patient's stomach. There was no evidence of mucosal tear after dilation. The scope was then withdrawn and the procedure terminated. The patient tolerated the procedure well. IMPRESSION: 1. Gastritis. 2. Otherwise, normal upper endoscopy. RECOMMENDATIONS: 1. Await biopsy results. 2. Continue PPI therapy. 3. Observe the patient post-dilation. [facility] [address] [place] [address] PROCEDURE REPORT Name: LORNA OLSON [id number] Admission: 04/10/18 Attend Phys: Jeb Mercado Discharge: Date of : 47 Report #: [id number] Thank you for allowing me to participate in her care. <ELECTRONICALLY SIGNED> By: Jeb Marques MD 04/13/18 1425 1029 1436 Jeb Marques MD /nt
== END | disposition home or self-care (01) ==
LOC: GI 08:55
DX: K29.70 Gastritis, unspecified, without bleeding (principal); I11.0 Hypertensive heart disease with heart failure; I50.9 Heart failure, unspecified; E11.9 Type 2 diabetes mellitus without complications; E78.5 Hyperlipidemia, unspecified; E03.9 Hypothyroidism, unspecified; I42.9 Cardiomyopathy, unspecified; K21.9 Gastro-esophageal reflux disease without esophagitis; D64.9 Anemia, unspecified; G47.33 Obstructive sleep apnea (adult) (pediatric); F41.9 Anxiety disorder, unspecified; Z91.040 Latex allergy status; Z87.891 Personal history of nicotine dependence; Z95.1 Presence of aortocoronary bypass graft; Z79.4 Long term (current) use of insulin; Z98.51 Tubal ligation status; Z98.41 Cataract extraction status, right eye; Z98.42 Cataract extraction status, left eye; Z95.5 Presence of coronary angioplasty implant and graft; Z98.890 Other specified postprocedural states; Z79.899 Other long term (current) drug therapy; Z79.82 Long term (current) use of aspirin
CPT/HCPCS: 62110; 62900

== ENCOUNTER → 2018-08-05 | Outpatient (CLI) | payer OTHER | LOC: ULTRA 13:13 | DX: M79.604 Pain in right leg (principal); M79.605 Pain in left leg ==

== ENCOUNTER → 2019-01-14 | Outpatient (CLI) | payer OTHER | LOC: RAD 15:14 | DX: Z12.31 Encounter for screening mammogram for malignant neoplasm of breast (principal) ==

== ENCOUNTER → 2019-08-19 | Outpatient (CLI) | payer OTHER | END | disposition home or self-care (01) | LOC: SJCVCIMAG 13:49 | DX: I25.10 Atherosclerotic heart disease of native coronary artery without angina pectoris (principal); I10 Essential (primary) hypertension; E78.00 Pure hypercholesterolemia, unspecified; R60.9 Edema, unspecified; I13.0 Hypertensive heart and chronic kidney disease with heart failure and stage 1 through stage 4 chronic kidney disease, or unspecified chronic kidney disease; I50.9 Heart failure, unspecified; E11.22 Type 2 diabetes mellitus with diabetic chronic kidney disease; N18.3 Chronic kidney disease, stage 3 (moderate); G47.33 Obstructive sleep apnea (adult) (pediatric); Z79.82 Long term (current) use of aspirin; Z79.899 Other long term (current) drug therapy; Z95.1 Presence of aortocoronary bypass graft ==

== ENCOUNTER → 2019-11-10 | Outpatient (CLI) | payer OTHER | LOC: SJCVCIMAG 08:24 | DX: I08.8 Other rheumatic multiple valve diseases (principal); I11.9 Hypertensive heart disease without heart failure; I25.810 Atherosclerosis of coronary artery bypass graft(s) without angina pectoris; R94.31 Abnormal electrocardiogram [ECG] [EKG]; I12.9 Hypertensive chronic kidney disease with stage 1 through stage 4 chronic kidney disease, or unspecified chronic kidney disease; N18.2 Chronic kidney disease, stage 2 (mild); M79.602 Pain in left arm; R60.9 Edema, unspecified; E78.00 Pure hypercholesterolemia, unspecified; E78.5 Hyperlipidemia, unspecified; E03.9 Hypothyroidism, unspecified; E66.01 Morbid (severe) obesity due to excess calories; Z79.82 Long term (current) use of aspirin; Z79.899 Other long term (current) drug therapy; Z87.891 Personal history of nicotine dependence ==

== ENCOUNTER → 2020-01-23 | Outpatient (CLI) | payer OTHER | LOC: BC 11:12 | PROVIDERS: ATTEND Neuromusculoskeletal Medicine & OMM | DX: Z12.31 Encounter for screening mammogram for malignant neoplasm of breast (principal) ==

== ENCOUNTER → 2020-02-17 | Outpatient (CLI) | payer OTHER | LOC: SJCVC 11:42 | PROVIDERS: ATTEND Internal Medicine Cardiovascular Disease | DX: I25.10 Atherosclerotic heart disease of native coronary artery without angina pectoris (principal); E78.00 Pure hypercholesterolemia, unspecified; E11.22 Type 2 diabetes mellitus with diabetic chronic kidney disease; I12.9 Hypertensive chronic kidney disease with stage 1 through stage 4 chronic kidney disease, or unspecified chronic kidney disease; N18.2 Chronic kidney disease, stage 2 (mild); Z95.1 Presence of aortocoronary bypass graft; Z79.899 Other long term (current) drug therapy; Z87.891 Personal history of nicotine dependence ==

== ENCOUNTER → 2020-04-01 | Outpatient (CLI) | payer OTHER | LOC: ULTRA 14:56 | PROVIDERS: ATTEND Neuromusculoskeletal Medicine & OMM | DX: M79.89 Other specified soft tissue disorders (principal); M79.662 Pain in left lower leg ==

== ENCOUNTER → 2020-08-17 | Outpatient (CLI) | payer OTHER | LOC: SJCVC 13:58 | PROVIDERS: ATTEND Internal Medicine Cardiovascular Disease | DX: I25.10 Atherosclerotic heart disease of native coronary artery without angina pectoris (principal); R94.31 Abnormal electrocardiogram [ECG] [EKG]; E78.00 Pure hypercholesterolemia, unspecified; R60.9 Edema, unspecified; E11.22 Type 2 diabetes mellitus with diabetic chronic kidney disease; I12.9 Hypertensive chronic kidney disease with stage 1 through stage 4 chronic kidney disease, or unspecified chronic kidney disease; N18.2 Chronic kidney disease, stage 2 (mild); E03.9 Hypothyroidism, unspecified; G47.33 Obstructive sleep apnea (adult) (pediatric); Z95.1 Presence of aortocoronary bypass graft; Z90.710 Acquired absence of both cervix and uterus; Z88.8 Allergy status to other drugs, medicaments and biological substances; Z79.82 Long term (current) use of aspirin; Z79.4 Long term (current) use of insulin; Z79.899 Other long term (current) drug therapy; Z87.891 Personal history of nicotine dependence; Z82.49 Family history of ischemic heart disease and other diseases of the circulatory system ==

== ENCOUNTER → 2021-02-14 | Outpatient (CLI) | payer OTHER | LOC: SJCVC 13:03 | PROVIDERS: ATTEND Internal Medicine Cardiovascular Disease | DX: R94.31 Abnormal electrocardiogram [ECG] [EKG] (principal); S81.802A Unspecified open wound, left lower leg, initial encounter; I25.10 Atherosclerotic heart disease of native coronary artery without angina pectoris; E78.00 Pure hypercholesterolemia, unspecified; E11.22 Type 2 diabetes mellitus with diabetic chronic kidney disease; I12.9 Hypertensive chronic kidney disease with stage 1 through stage 4 chronic kidney disease, or unspecified chronic kidney disease; N18.2 Chronic kidney disease, stage 2 (mild); D63.1 Anemia in chronic kidney disease; E78.5 Hyperlipidemia, unspecified; E03.9 Hypothyroidism, unspecified; E66.01 Morbid (severe) obesity due to excess calories; G47.33 Obstructive sleep apnea (adult) (pediatric); F32.9 Major depressive disorder, single episode, unspecified; Z79.82 Long term (current) use of aspirin; Z79.899 Other long term (current) drug therapy; Z87.891 Personal history of nicotine dependence; X58.XXXA Exposure to other specified factors, initial encounter ==

== ENCOUNTER → 2021-02-15 | Outpatient (CLI) | payer OTHER | LOC: HYPER 07:37 | PROVIDERS: ATTEND Specialist | DX: E11.622 Type 2 diabetes mellitus with other skin ulcer (principal); L97.821 Non-pressure chronic ulcer of other part of left lower leg limited to breakdown of skin; I87.332 Chronic venous hypertension (idiopathic) with ulcer and inflammation of left lower extremity; I87.321 Chronic venous hypertension (idiopathic) with inflammation of right lower extremity; R60.0 Localized edema; E11.22 Type 2 diabetes mellitus with diabetic chronic kidney disease; I12.9 Hypertensive chronic kidney disease with stage 1 through stage 4 chronic kidney disease, or unspecified chronic kidney disease; N18.2 Chronic kidney disease, stage 2 (mild); E11.319 Type 2 diabetes mellitus with unspecified diabetic retinopathy without macular edema; E66.01 Morbid (severe) obesity due to excess calories; E44.0 Moderate protein-calorie malnutrition; I25.10 Atherosclerotic heart disease of native coronary artery without angina pectoris; R26.9 Unspecified abnormalities of gait and mobility; I89.0 Lymphedema, not elsewhere classified; E03.9 Hypothyroidism, unspecified; E78.00 Pure hypercholesterolemia, unspecified; E78.5 Hyperlipidemia, unspecified; G47.33 Obstructive sleep apnea (adult) (pediatric); Z79.4 Long term (current) use of insulin; Z87.891 Personal history of nicotine dependence; Z95.1 Presence of aortocoronary bypass graft; Z90.710 Acquired absence of both cervix and uterus; Z98.49 Cataract extraction status, unspecified eye; Z79.82 Long term (current) use of aspirin; Z68.42 Body mass index [BMI] 45.0-49.9, adult ==

== ENCOUNTER → 2021-02-24 | Outpatient (CLI) | payer OTHER | LOC: SJCVCIMAG 09:06 | PROVIDERS: ATTEND Emergency Medicine | DX: M79.605 Pain in left leg (principal); M79.604 Pain in right leg; I73.9 Peripheral vascular disease, unspecified ==

== ENCOUNTER → 2021-03-01 | Outpatient (CLI) | payer OTHER | LOC: HYPER 07:58 | PROVIDERS: ATTEND Specialist | DX: E11.622 Type 2 diabetes mellitus with other skin ulcer (principal); I87.332 Chronic venous hypertension (idiopathic) with ulcer and inflammation of left lower extremity; L97.821 Non-pressure chronic ulcer of other part of left lower leg limited to breakdown of skin; I87.321 Chronic venous hypertension (idiopathic) with inflammation of right lower extremity; T81.31XD Disruption of external operation (surgical) wound, not elsewhere classified, subsequent encounter; I89.0 Lymphedema, not elsewhere classified; E11.69 Type 2 diabetes mellitus with other specified complication; E11.22 Type 2 diabetes mellitus with diabetic chronic kidney disease; N18.2 Chronic kidney disease, stage 2 (mild); E44.0 Moderate protein-calorie malnutrition; R26.9 Unspecified abnormalities of gait and mobility; I25.10 Atherosclerotic heart disease of native coronary artery without angina pectoris; R60.0 Localized edema; E66.01 Morbid (severe) obesity due to excess calories; Z79.4 Long term (current) use of insulin; Z95.1 Presence of aortocoronary bypass graft; Z68.42 Body mass index [BMI] 45.0-49.9, adult; Y83.8 Other surgical procedures as the cause of abnormal reaction of the patient, or of later complication, without mention of misadventure at the time of the procedure ==

== ENCOUNTER → 2021-03-03 | Outpatient (CLI) | payer OTHER | LOC: HYPER 07:36 | PROVIDERS: ATTEND Emergency Medicine | DX: T81.31XD Disruption of external operation (surgical) wound, not elsewhere classified, subsequent encounter (principal); I87.332 Chronic venous hypertension (idiopathic) with ulcer and inflammation of left lower extremity; E11.622 Type 2 diabetes mellitus with other skin ulcer; L97.821 Non-pressure chronic ulcer of other part of left lower leg limited to breakdown of skin; I87.321 Chronic venous hypertension (idiopathic) with inflammation of right lower extremity; E11.69 Type 2 diabetes mellitus with other specified complication; I89.0 Lymphedema, not elsewhere classified; E44.0 Moderate protein-calorie malnutrition; R26.9 Unspecified abnormalities of gait and mobility; I25.10 Atherosclerotic heart disease of native coronary artery without angina pectoris; R60.0 Localized edema; E11.22 Type 2 diabetes mellitus with diabetic chronic kidney disease; I12.9 Hypertensive chronic kidney disease with stage 1 through stage 4 chronic kidney disease, or unspecified chronic kidney disease; N18.2 Chronic kidney disease, stage 2 (mild); E03.9 Hypothyroidism, unspecified; E78.00 Pure hypercholesterolemia, unspecified; E78.5 Hyperlipidemia, unspecified; E11.319 Type 2 diabetes mellitus with unspecified diabetic retinopathy without macular edema; G47.33 Obstructive sleep apnea (adult) (pediatric); E66.01 Morbid (severe) obesity due to excess calories; Z68.42 Body mass index [BMI] 45.0-49.9, adult; Z79.4 Long term (current) use of insulin; Z79.899 Other long term (current) drug therapy; Z95.1 Presence of aortocoronary bypass graft; Z87.891 Personal history of nicotine dependence; Y83.8 Other surgical procedures as the cause of abnormal reaction of the patient, or of later complication, without mention of misadventure at the time of the procedure ==

== ENCOUNTER → 2021-03-08 | Outpatient (CLI) | payer OTHER | LOC: HYPER 07:53 | PROVIDERS: ATTEND Specialist | DX: T81.31XD Disruption of external operation (surgical) wound, not elsewhere classified, subsequent encounter (principal); E11.622 Type 2 diabetes mellitus with other skin ulcer; I87.332 Chronic venous hypertension (idiopathic) with ulcer and inflammation of left lower extremity; L97.821 Non-pressure chronic ulcer of other part of left lower leg limited to breakdown of skin; I87.321 Chronic venous hypertension (idiopathic) with inflammation of right lower extremity; E11.22 Type 2 diabetes mellitus with diabetic chronic kidney disease; I12.9 Hypertensive chronic kidney disease with stage 1 through stage 4 chronic kidney disease, or unspecified chronic kidney disease; N18.2 Chronic kidney disease, stage 2 (mild); E11.319 Type 2 diabetes mellitus with unspecified diabetic retinopathy without macular edema; I89.0 Lymphedema, not elsewhere classified; R60.0 Localized edema; E44.0 Moderate protein-calorie malnutrition; E66.01 Morbid (severe) obesity due to excess calories; E03.9 Hypothyroidism, unspecified; E78.00 Pure hypercholesterolemia, unspecified; E78.5 Hyperlipidemia, unspecified; R26.9 Unspecified abnormalities of gait and mobility; G47.33 Obstructive sleep apnea (adult) (pediatric); I25.10 Atherosclerotic heart disease of native coronary artery without angina pectoris; K21.9 Gastro-esophageal reflux disease without esophagitis; Z68.42 Body mass index [BMI] 45.0-49.9, adult; Z79.4 Long term (current) use of insulin; Z95.1 Presence of aortocoronary bypass graft; Z87.891 Personal history of nicotine dependence; Y83.8 Other surgical procedures as the cause of abnormal reaction of the patient, or of later complication, without mention of misadventure at the time of the procedure ==

== ENCOUNTER → 2021-03-22 | Outpatient (CLI) | payer OTHER | LOC: HYPER 07:43 | PROVIDERS: ATTEND Specialist | DX: T81.31XD Disruption of external operation (surgical) wound, not elsewhere classified, subsequent encounter (principal); E11.622 Type 2 diabetes mellitus with other skin ulcer; I87.332 Chronic venous hypertension (idiopathic) with ulcer and inflammation of left lower extremity; L97.821 Non-pressure chronic ulcer of other part of left lower leg limited to breakdown of skin; I87.321 Chronic venous hypertension (idiopathic) with inflammation of right lower extremity; E11.22 Type 2 diabetes mellitus with diabetic chronic kidney disease; I12.9 Hypertensive chronic kidney disease with stage 1 through stage 4 chronic kidney disease, or unspecified chronic kidney disease; N18.2 Chronic kidney disease, stage 2 (mild); E11.319 Type 2 diabetes mellitus with unspecified diabetic retinopathy without macular edema; I89.0 Lymphedema, not elsewhere classified; R60.0 Localized edema; E44.0 Moderate protein-calorie malnutrition; E66.01 Morbid (severe) obesity due to excess calories; E03.9 Hypothyroidism, unspecified; E78.00 Pure hypercholesterolemia, unspecified; E78.5 Hyperlipidemia, unspecified; R26.9 Unspecified abnormalities of gait and mobility; G47.33 Obstructive sleep apnea (adult) (pediatric); I25.10 Atherosclerotic heart disease of native coronary artery without angina pectoris; K21.9 Gastro-esophageal reflux disease without esophagitis; Z68.42 Body mass index [BMI] 45.0-49.9, adult; Z79.4 Long term (current) use of insulin; Z95.1 Presence of aortocoronary bypass graft; Z87.891 Personal history of nicotine dependence; Y83.8 Other surgical procedures as the cause of abnormal reaction of the patient, or of later complication, without mention of misadventure at the time of the procedure ==

== ENCOUNTER → 2021-04-27 | Outpatient (CLI) | payer OTHER | LOC: HYPER 09:11 | PROVIDERS: ATTEND Emergency Medicine | DX: E11.622 Type 2 diabetes mellitus with other skin ulcer (principal); I87.332 Chronic venous hypertension (idiopathic) with ulcer and inflammation of left lower extremity; L97.822 Non-pressure chronic ulcer of other part of left lower leg with fat layer exposed; I87.321 Chronic venous hypertension (idiopathic) with inflammation of right lower extremity; I89.0 Lymphedema, not elsewhere classified; E44.0 Moderate protein-calorie malnutrition; R26.9 Unspecified abnormalities of gait and mobility; I25.10 Atherosclerotic heart disease of native coronary artery without angina pectoris; R60.0 Localized edema; E78.00 Pure hypercholesterolemia, unspecified; E03.9 Hypothyroidism, unspecified; E11.22 Type 2 diabetes mellitus with diabetic chronic kidney disease; I12.9 Hypertensive chronic kidney disease with stage 1 through stage 4 chronic kidney disease, or unspecified chronic kidney disease; N18.2 Chronic kidney disease, stage 2 (mild); E78.5 Hyperlipidemia, unspecified; E11.319 Type 2 diabetes mellitus with unspecified diabetic retinopathy without macular edema; E66.01 Morbid (severe) obesity due to excess calories; G47.33 Obstructive sleep apnea (adult) (pediatric); Z68.42 Body mass index [BMI] 45.0-49.9, adult; Z79.4 Long term (current) use of insulin; Z95.1 Presence of aortocoronary bypass graft; Z87.891 Personal history of nicotine dependence; Z79.899 Other long term (current) drug therapy ==

== ENCOUNTER → 2021-04-29 | Outpatient (CLI) | payer OTHER | LOC: HYPER 07:44 | PROVIDERS: ATTEND Emergency Medicine Emergency Medical Services | DX: E11.622 Type 2 diabetes mellitus with other skin ulcer (principal); I87.332 Chronic venous hypertension (idiopathic) with ulcer and inflammation of left lower extremity; L97.822 Non-pressure chronic ulcer of other part of left lower leg with fat layer exposed; I87.321 Chronic venous hypertension (idiopathic) with inflammation of right lower extremity; I89.0 Lymphedema, not elsewhere classified; E44.0 Moderate protein-calorie malnutrition; R26.9 Unspecified abnormalities of gait and mobility; I25.10 Atherosclerotic heart disease of native coronary artery without angina pectoris; R60.0 Localized edema; E11.22 Type 2 diabetes mellitus with diabetic chronic kidney disease; I12.9 Hypertensive chronic kidney disease with stage 1 through stage 4 chronic kidney disease, or unspecified chronic kidney disease; N18.2 Chronic kidney disease, stage 2 (mild); E03.9 Hypothyroidism, unspecified; E78.00 Pure hypercholesterolemia, unspecified; E78.5 Hyperlipidemia, unspecified; E11.319 Type 2 diabetes mellitus with unspecified diabetic retinopathy without macular edema; G47.33 Obstructive sleep apnea (adult) (pediatric); E66.01 Morbid (severe) obesity due to excess calories; Z79.4 Long term (current) use of insulin; Z68.42 Body mass index [BMI] 45.0-49.9, adult; Z87.891 Personal history of nicotine dependence; Z79.899 Other long term (current) drug therapy ==

== ENCOUNTER → 2021-05-04 | Outpatient (CLI) | payer OTHER | LOC: HYPER 09:34 | PROVIDERS: ATTEND Emergency Medicine | DX: E11.622 Type 2 diabetes mellitus with other skin ulcer (principal); I87.332 Chronic venous hypertension (idiopathic) with ulcer and inflammation of left lower extremity; L97.822 Non-pressure chronic ulcer of other part of left lower leg with fat layer exposed; I87.321 Chronic venous hypertension (idiopathic) with inflammation of right lower extremity; I89.0 Lymphedema, not elsewhere classified; E44.0 Moderate protein-calorie malnutrition; R26.9 Unspecified abnormalities of gait and mobility; I25.10 Atherosclerotic heart disease of native coronary artery without angina pectoris; R60.0 Localized edema; E78.00 Pure hypercholesterolemia, unspecified; E03.9 Hypothyroidism, unspecified; E11.22 Type 2 diabetes mellitus with diabetic chronic kidney disease; I12.9 Hypertensive chronic kidney disease with stage 1 through stage 4 chronic kidney disease, or unspecified chronic kidney disease; N18.2 Chronic kidney disease, stage 2 (mild); E78.5 Hyperlipidemia, unspecified; E11.319 Type 2 diabetes mellitus with unspecified diabetic retinopathy without macular edema; E66.01 Morbid (severe) obesity due to excess calories; K21.9 Gastro-esophageal reflux disease without esophagitis; G47.33 Obstructive sleep apnea (adult) (pediatric); Z68.42 Body mass index [BMI] 45.0-49.9, adult; Z79.4 Long term (current) use of insulin; Z95.1 Presence of aortocoronary bypass graft; Z87.891 Personal history of nicotine dependence ==

== ENCOUNTER → 2021-05-18 | Outpatient (CLI) | payer OTHER | LOC: HYPER 11:04 | PROVIDERS: ATTEND Emergency Medicine | DX: E11.622 Type 2 diabetes mellitus with other skin ulcer (principal); I87.332 Chronic venous hypertension (idiopathic) with ulcer and inflammation of left lower extremity; L97.822 Non-pressure chronic ulcer of other part of left lower leg with fat layer exposed; I87.321 Chronic venous hypertension (idiopathic) with inflammation of right lower extremity; I89.0 Lymphedema, not elsewhere classified; E44.0 Moderate protein-calorie malnutrition; R26.9 Unspecified abnormalities of gait and mobility; I25.10 Atherosclerotic heart disease of native coronary artery without angina pectoris; R60.0 Localized edema; E78.00 Pure hypercholesterolemia, unspecified; E03.9 Hypothyroidism, unspecified; E11.22 Type 2 diabetes mellitus with diabetic chronic kidney disease; I12.9 Hypertensive chronic kidney disease with stage 1 through stage 4 chronic kidney disease, or unspecified chronic kidney disease; N18.2 Chronic kidney disease, stage 2 (mild); E78.5 Hyperlipidemia, unspecified; E11.319 Type 2 diabetes mellitus with unspecified diabetic retinopathy without macular edema; E66.01 Morbid (severe) obesity due to excess calories; K21.9 Gastro-esophageal reflux disease without esophagitis; G47.33 Obstructive sleep apnea (adult) (pediatric); Z68.42 Body mass index [BMI] 45.0-49.9, adult; Z79.4 Long term (current) use of insulin; Z95.1 Presence of aortocoronary bypass graft; Z87.891 Personal history of nicotine dependence ==